=== PATIENT | male | born 1980 | race Caucasian/White ===

== ENCOUNTER 2025-05-23 15:20 | Emergency (ER) | payer BC, SELFPAY ==
[2025-05-23 15:21] VITALS: BMI 42.3
--- NOTE | 2025-05-23 15:23 | EKG_ITS ---
[facility] Test Date: 2025-05-23 Pat Name: VERONICA MULLEN Department: Room: - Gender: Male Play Writer: : 1980 Requested By: Ne Pride Order Number: [id number] Reading MD: Ne Pride Measurements Intervals [place] Rate: 104 P: 41 VT: 157 QRS: 14 QRSD: 95 T: 60 QT: 309 QTc: 407 Interpretive Statements SINUS TACHYCARDIA NONSPECIFIC T-WAVE ABNORMALITY ABNORMAL RHYTHM ECG Compared to ECG 09/29/2020 09:19:09 T-wave abnormality now present Sinus rhythm no longer present /store/S0/[id number]/ecg/[id number].pdf
[2025-05-23 15:36] VITALS: BP 156/99; PULSE 97; RESP 18; TEMP 36.8; O2SAT 99
--- NOTE | 2025-05-23 15:42 | EDRME_ITS ---
Rapid Medical Screening Exam RME Arrival date/time: 05/23/25 15:20 44-year-old male with a history of hyperlipidemia, hypertension, CVAs, presents to the emergency room with a chief complaint of chest pain and palpitations x 2 hours I have greeted and performed a focused initial assessment of this patient. A com prehensive ED assessment and evaluation of the patient, analysis of all test results, and completion of the medical decision making process will be conducted by additional ED providers. Chief Complaint: Anxiety Vital signs: Vital Signs Temperature 98.3 F 05/23/25 15:36 Pulse Rate 97 05/23/25 15:36 Respiratory Rate 18 05/23/25 15:36 Blood Pressure 156/99 H 05/23/25 15:36 Pulse Oximetry (%) 99 05/23/25 15:36 Oxygen Delivery Method Room Air 05/23/25 15:36 Vital signs reviewed by provider: Yes Exam: Strong and regular rhythm S1 and S2 noted no systolic or diastolic murmurs Clear bilateral lung sounds Clinical Impression: STEMI/NSTEMI/chest pain
--- NOTE | 2025-05-23 15:42 | XR_ITS ---
EXAMINATION: PA chest single view TECHNIQUE: Upright PA chest single view Date and time: May 23, 2025, 1558 hours INDICATIONS: Shortness of breath anxiety 2 hours FINDINGS: No significant cardiac contour enlargement No lobar pneumonia or pulmonary edema The Glenn structures are intact IMPRESSION: No active disease
[2025-05-23 16:08] LABS: Basophils # (Auto) 0.1 Thou/mm3 (0.0-0.2); Basophils % (Auto) 1 % (0-2.5); Eosinophils # (Auto) 0.1 Thou/mm3 (0.0-0.5); Eosinophils % (Auto) 1 % (0-10); Hematocrit 45.4 % (41.0-53.0); Hemoglobin 14.7 g/dL (13.5-16.0); Immature Granulocytes Auto 0.04 Thou/mm3 (0.00-0.00); Lymphocytes # (Auto) 1.0 Thou/mm3 (1.0-4.8); Lymphocytes % (Auto) 10 % (10-50); Mean Corpuscular HGB Conc 32.4 g/dl (31.0-37.0); Mean Corpuscular Hemoglobin 25.1 pg (25.0-35.0); Mean Corpuscular Volume 78 fL (80-100); Monocytes # (Auto) 0.5 Thou/mm3 (0.0-0.8); Monocytes % (Auto) 5 % (0-12); Neutrophils # (Auto) 8.2 Thou/mm3 (1.8-7.7); Neutrophils % (Auto) 82 % (37-80); Nucleated Red Blood Cell # 0.00 Thou/mm3 (0.00-0.00); Nucleated Red Blood Cell % 0 /100 WBC (0); Platelet Count 247 Thou/mm3 (140-440); RDW Standard Deviation 37.4 fL (35.1-43.9); Red Blood Count 5.85 Miln/mm3 (4.50-5.90); White Blood Count 9.9 Thou/mm3 (3.8-10.6)
[2025-05-23 16:32] LABS: Alanine Aminotransferase 32 U/L (10-49); Albumin, Serum 4.9 gm/dL (3.5-5.0); Albumin/Globulin Ratio 1.9 (1.2-2.2); Alkaline Phosphatase 95 U/L (46-116); Anion Gap 9 (7-16); Aspartate Amino Transferase 24 U/L (0-34); BUN/Creatinine Ratio 9 Ratio (12-20); Bilirubin,Total 0.5 mg/dL (0.3-1.2); Blood Urea Nitrogen 10 mg/dL (9-23); Calcium 9.4 mg/dL (8.3-10.6); Calcium (Corrected) 9.4 mg/dL (8.5-10.1); Carbon Dioxide 24.9 mMol/L (20.0-31.0); Chloride 103 mMol/L (98-107); Creatinine (Component) 1.1 mg/dL (0.6-1.3); Estimated Creatinine Clearance 135.1 mL/min (>60); Free T4 (Free Thyroxine) 1.21 ng/dL (0.89-1.76); Globulin 2.6 gm/dL (2.3-3.5); Glucose 122 mg/dL (74-106); Magnesium 1.7 mg/dL (1.6-2.6); Osmolality,Calculated 273 (275-295); Potassium 4.8 mMol/L (3.4-5.1); Sodium 137 mMol/L (136-145); Thyroid Stimulating Hormone 0.44 uIU/mL (0.55-4.78); Total Protein 7.5 gm/dL (5.7-8.2); Troponin I < 0.002 ng/mL (0.0-0.045); eGFR > 60 See Note
[2025-05-23 16:35] LABS: Collection Type, Urine Clean Catch; Squamous Epithelial Cell,Urine 0 /hpf (0-5)
[2025-05-23 16:36] LABS: B-Type Natriuretic Peptide < 20 pg/mL (0-100)
[2025-05-23 16:47] LABS: Amphetamine/Methamp Scrn,U Negative (Negative); Bacteria,Urine Rare; Barbiturate Screen,Urine Negative (Negative); Benzodiazepines Screen,Urine Negative (Negative); Benzoylecgonine Screen, Ur Negative (Negative); Bilirubin,Urine Negative (Negative); Blood,Urine Negative (Negative); Clarity,Urine Clear (Clear/Hazy); Color,Urine Lt-Yellow (Lt Yel-Yel); Culture Indicated,Urine Not Indicated; Fentanyl Screen,Urine Negative (Negative); Glucose, Urine Negative (Negative); Ketones,Urine Negative (Negative); Leukocyte Esterase,Urine Negative (Negative); Nitrite,Urine Negative (Negative); Opiate Screen,Urine Negative (Negative); PH,Urine 6.5 (5.0-7.0); Protein,Urine Negative (Neg - Trace); RBC,Urine 1 /hpf (0-3); Specific Gravity,Urine 1.015 (1.001-1.035); THC Screen,Urine Negative (Negative); Urobilinogen,Urine Negative mg/dL (0.0-1.0); WBC,Urine 1 /hpf (0-5)
[2025-05-23 17:28] VITALS: BP 133/85; PULSE 99; RESP 18; TEMP 37.2; O2SAT 99
--- NOTE | 2025-05-23 19:19 | PD.EDRME ---
Rapid Medical Screening Exam RME Arrival date/time: 05/23/25 15:20 05/23/25 15:20 44-year-old male with a history of hyperlipidemia, hypertension, CVAs, presents to the emergency room with a chief complaint of chest pain and palpitations x 2 hours I have greeted and performed a focused initial assessment of this patient. A comprehensive ED assessment and evaluation of the patient, analysis of all test results, and completion of the medical decision making process will be conducted by additional ED providers. Chief Complaint: Anxiety Time Seen by Provider: 05/23/25 18:31 Vital signs: Vital Signs Temperature 98.3 F 05/23/25 15:36 Pulse Rate 97 05/23/25 15:36 Respiratory Rate 18 05/23/25 15:36 Blood Pressure 156/99 H 05/23/25 15:36 Pulse Oximetry (%) 99 05/23/25 15:36 Oxygen Delivery Method Room Air 05/23/25 15:36 RME Narrative: 05/23/25 15:20 44-year-old male with a history of hyperlipidemia, hypertension, CVAs, presents to the emergency room with a chief complaint of chest pain and palpitations x 2 hours I have greeted and performed a focused initial assessment of this patient. A comprehensive ED assessment and evaluation of the patient, analysis of all test results, and completion of the medical decision making process will be conducted by additional ED providers. Exam: Strong and regular rhythm S1 and S2 noted no systolic or diastolic murmurs Clear bilateral lung sounds Clinical Impression: STEMI/NSTEMI/chest pain
--- NOTE | 2025-05-23 19:27 | PD.EDADULT ---
ED General RME/HPI General Chief complaint: Anxiety Stated complaint: ANXIETY X 2 HR Time Seen by Provider: 05/23/25 18:31 Arrival date/time: 05/23/25 15:20 CC: No chest tightness HPI onset approximately 1400, spontaneously resolved 4 hours later. The patient denies any actual chest pain. Shortness of breath difficulty breathing nausea vomiting diaphoresis. Patient is concerned because he had a heart attack in 2020. Patient is currently awake alert oriented no chest tightness no nausea and no other symptoms. RME / HPI RME / HPI narrative: 05/23/25 15:20 44-year-old male with a history of hyperlipidemia, hypertension, CVAs, presents to the emergency room with a chief complaint of chest pain and palpitations x 2 hours I have greeted and performed a focused initial assessment of this patient. A comprehensive ED assessment and evaluation of the patient, analysis of all test results, and completion of the medical decision making process will be conducted by additional ED providers. Exam: Strong and regular rhythm S1 and S2 noted no systolic or diastolic murmurs Clear bilateral lung sounds Impression: STEMI/NSTEMI/chest pain Related Data Home Medications ?Medication ?Instructions ?Recorded ?Confirmed metoprolol succinate 25 mg capsule 25 mg PO QDAY 02/20/20 09/28/20 sprinkle, ext. release 24 hr (Kapspargo Sprinkle) Previous Rx's ?Medication ?Instructions ?Recorded aspirin 81 mg tablet,delayed 81 mg PO QDAY #30 tabs 02/17/20 release (Adult Low Dose Aspirin) atorvastatin 80 mg tablet 80 mg PO QDAY #30 tabs 02/17/20 clopidogrel 75 mg tablet (Plavix) 75 mg PO QDAY #30 tabs 02/17/20 lisinopril 2.5 mg tablet 2.5 mg PO QDAY #30 tabs 02/17/20 isosorbide dinitrate 5 mg tablet 5 mg PO BID #60 tabs 02/21/20 carvedilol 3.125 mg tablet (Coreg) 3.125 mg PO BID #60 tabs 09/29/20 Allergies Allergy/AdvReac Type Severity Reaction Status Date / Time No Known Allergies Allergy Verified 05/23/25 15:23 Review of Systems Review of Systems Narrative Review of Systems: GEN: No fever, no chills, no weight loss EYES: No discharge, no visual changes, no pain HEENT: No ear pain, no congestion, no sore throat PULM: No shortness of breath, no cough, no congestion CV: + chest pain, no dyspnea on exertion, no palpitations GI: No nausea, no vomiting, no diarrhea, no pain, no constipation : No frequency, no urgency, no dysuria MUSC/SKEL: No joint pain, no back pain SKIN: No rash PSYCH: No hallucinations, no depression HEME/LYMPH: No easy bleeding or bruising tendencies NEURO: No weakness, no headache Past Medical History Past Medical History CARDIAC: Positive Cardiac Disorders, Myocardial Infarction, Coronary Artery Disease, Hypercholesterolemia and Hypertension; Negative Congestive Heart Failure RESPIRATORY: Negative Chronic Obstructive Pulmonary Disease (COPD) GASTROINTESTINAL: Positive Obesity GENITOURINARY: Negative Genitourinary Disorders or Renal Disease ENDOCRINE: Negative Diabetes Mellitus Type 1 or Diabetes Mellitus Type 2 Surgical History SURGICAL: Positive Coronary Stent, Cardiac Catheterization and Angiogram; Negative Tonsillectomy Social History SMOKING STATUS: Never smoker SECOND HAND EXPOSURE: Yes SUBSTANCE USE: marijuana OCCUPATION: [employer] at [employer] ED Exam Narrative Physical exam: [General: Morbidly obese not in any acute distress Head normocephalic HEENT: Within acceptable limits Neck is supple nontender Chest equal chest rise nontender to palpation Respiratory: Clear to auscultation no wheezes crackles or rubs CV: Rate rhythm is regular no murmurs rubs or clicks Abdomen is distended secondary to body habitus soft nontender no masses positive bowel sounds all 4 quadrants Back: No CVA tenderness no spinous process tenderness from cervical spine thoracic and lumbar spine Skin: Intact no petechiae rash induration ulceration or crepitus Extremities: Moving all extremity against resistance cap refill less than 2 seconds neurosensory intact Neuro: Awake alert oriented x3 Glascow coma 15 no focal deficits] Course Course Course Narrative: Patient has spontaneous resolution of all symptoms, he is negative on his cardiac workup. I have low index suspicion of ACS or CA will have the patient follow-up with Dr. Dacosta his tripe scraper. Patient is in agreement with this plan. Quality Measures none Orders Category Date Time Status EKG (ED ONLY) *Do not use* NOW Care 05/23/25 15:23 Completed EKG (ED Only) Stat Exams 05/23/25 15:23 Draft XR chest 1V portable Stat Exams 05/23/25 15:42 Completed B-Type Natriuretic Peptide Stat Lab 05/23/25 15:52 Completed CBC Stat Lab 05/23/25 15:52 Completed Comprehensive Metabolic Panel Stat Lab 05/23/25 15:52 Completed Drug Screen,Urine Stat Lab 05/23/25 16:16 Completed Free T4 (Free Thyroxine) Stat Lab 05/23/25 15:52 Completed Magnesium Stat Lab 05/23/25 15:52 Completed TSH [Thyroid Stimulating Hormone] Stat Lab 05/23/25 15:52 Completed Troponin I Stat Lab 05/23/25 15:52 Completed Urinalysis, C/S if Indicated Stat Lab 05/23/25 16:16 Completed Vital Signs Vital signs: Vital Signs Temperature 98.3 F 05/23/25 15:36 Pulse Rate 97 05/23/25 15:36 Respiratory Rate 18 05/23/25 15:36 Blood Pressure 156/99 H 05/23/25 15:36 Pulse Oximetry (%) 99 05/23/25 15:36 Oxygen Delivery Method Room Air 05/23/25 15:36 Discharge Plan Plan Patient Disposition: HOME (Self Care) Patient condition on transfer: Stable Prescriptions/Referrals Prescriptions/Med Rec: No Action aspirin [Adult Low Dose Aspirin] 81 mg tablet,delayed release (DR/EC) 81 mg PO QDAY Qty: 30 0RF clopidogrel [Plavix] 75 mg tablet 75 mg PO QDAY Qty: 30 0RF atorvastatin 80 mg tablet 80 mg PO QDAY Qty: 30 0RF lisinopril 2.5 mg Tablet 2.5 mg PO QDAY Qty: 30 0RF carvedilol [Coreg] 3.125 mg tablet 3.125 mg PO BID Qty: 60 0RF Rx Instructions: must administer with a meal/food Kapspargo Sprinkle 25 mg capsule,sprinkle,ER 24hr 25 mg PO QDAY Patient Comments: 25 MG PO QDAY isosorbide dinitrate 5 mg tablet 5 mg PO BID Qty: 60 0RF Rx Instructions: allow nitrate-free interval of 12-14 hrs per 24-hr period Referrals: No Primary/Family,Physician [Primary Care Provider] - In 1 week Nelson Dacosta MD [Physician, Cardiology] - In 1 week Problem List Clinical Impression: Chest pain Patient/Caregiver Discharge Instructions Education Materials: ED Chest Pain, Uncertain Cause Additional Instructions: Follow-up with your tripe scraper take all your medications as prescribed if there is a worsening of symptoms return the emergency room for reevaluation. Print Language: Gibralt[place] Stand Alone Forms: Denice Award Info., Patient Portal Info Letter BEATRIZ/ADIEL Supervising Physician BIPIN Supervising Physician: Jose Miguel Dias ENP [facility] Clinical Information Provided by: patient Medical Records reviewed [facility] Meds/Rx considered, not ordered None Labs/Rad/Tests considered, not ordered None Chronic Illness/Social Conditions Explain: Obesity EKG Interpretation EKG #1: EKG Interpretation: EKG performed at 15 32, shows a ventricular rate of 104 MI interval 157 QRS of 95 QTc of 369 is sinus tachycardia nonspecific ST segment changes. Labs Labs: interpreted by ct Lab(s) Interpretation(s): CBC shows no acute leukocytosis anemia thrombocytopenia CMP shows no significant electrolyte imbalances glucose is mildly elevated at 122. No other transaminitis T. bili elevation or renal impairment Troponin is undetectable BNP is less than 20. TSH is 0.44 free T41.21 Urine is negative for urinary tract infection. UDS is negative. Imaging Imaging interpretation: interpreted by ct Imaging Interpretation(s): [facility] x-ray is negative for any active disease.
[2025-05-23 19:40] VITALS: BP 119/81; PULSE 96; RESP 18; TEMP 36.9; O2SAT 97
== END 2025-05-23 19:41 | disposition home or self-care (01) ==
PROVIDERS: Nurse Practitioner Family; Emergency Provider Emergency Medicine
DX: R07.9 Chest pain, unspecified (principal); R06.02 Shortness of breath; R00.0 Tachycardia, unspecified; I10 Essential (primary) hypertension; E78.00 Pure hypercholesterolemia, unspecified; I25.2 Old myocardial infarction; I25.10 Atherosclerotic heart disease of native coronary artery without angina pectoris; Z95.5 Presence of coronary angioplasty implant and graft
CPT/HCPCS: 36415; 71045; 80053; 80307; 81001; 83735; 83880; 84439; 84443; 84484; 85025; 93005; 99283